=== PATIENT | female | born 1940 | race Caucasian/White ===

== ENCOUNTER → 2016-07-27 19:59 | Emergency (ER) | payer MEDICARE, BC ==
[~2016-07-27 19:59] MED LIST: Guaifenesin/Pseudo 600/60(NF) TAB (Mucinex D) PO ONE; LORazepam INJ* 2 MG/ML 1 ML VIAL IV ONE; NS 0.9% 1000 ML* 500 ML IV ONE; Pseudoephedrine TAB* 30 MG PO ONE; diPHENhydraMINE IV* 50 MG/ML 1 ml VIAL (BENADRYL) IV ONE; guaiFENesin ER TAB 600 MG PO ONE
[2016-07-28 00:32] VITALS: BP 140/53
--- NOTE | 2016-07-28 14:22 | ED ---
Melvi Rod Rebecca, scribed for Ralph Bush MD on 07/27/16 at 2024 . Allergic Reaction/Systemic - HPI Summary HPI Summary: Pt is a 75 y/o F who comes to ED p/w possible allergic reaction. After eating fish, at 1715 she suddenly began experiencing throat tightening and cough with great amounts of phlegm. Sx have been present since onset. Sx aggravated and alleviated by nothing. Denies rash, pruritis and tongue swelling. Daughter reports she has eaten fish previously without an adverse reaction. Has never had allergy testing completed. Several prior similar episodes, but less severe. - History of Current Complaint Chief Complaint: EDAllergicReaction Time Seen by Provider: 07/27/16 20:18 Hx Obtained From: Patient Onset/Duration: Sudden Onset, Started hours ago - 3 hours ago, Still Present Timing: Constant Severity Initially: Mild Severity Currently: Mild Pain Intensity: 2 Pain Scale Used: 0-10 Numeric Aggravating Factor(s): Nothing Alleviating Factor(s): Nothing Associated Signs And Symptoms: Positive: Throat Tightening, Other: - Productive cough; Denies tongue swelling and pruritis. 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 Negative: Rash All Other Systems Reviewed And Are Negative: Yes Physical Exam Triage Information Reviewed: Yes Vital Signs On Initial Exam: Initial Vitals Temp Pulse Resp BP Pulse Ox 98.8 F 106 20 173/79 96 07/27/16 20:00 07/27/16 20:00 07/27/16 20:00 07/27/16 20:00 07/27/16 20:00 Vital Signs Reviewed: Yes Appearance: Positive: Well-Appearing, No Pain Distress Skin: Positive: Warm, Skin Color Reflects Adequate Perfusion, Dry, Other - No rash Head/Face: Positive: Normal Head/Face Inspection Eyes: Positive: Normal ENT: Positive: Normal ENT inspection, Other - Posterior pharynx normal Neck: Positive: Supple, Nontender Respiratory/Lung Sounds: Positive: Clear to Auscultation, Breath Sounds Present Cardiovascular: Positive: RRR Abdomen Description: Positive: Nontender, Soft Bowel Sounds: Positive: Present Musculoskeletal: Positive: Normal Neurological: Positive: Normal Psychiatric: Positive: Normal Diagnostics - Vital Signs Vital Signs Temp Pulse Resp BP Pulse Ox 07/27/16 20:00 98.8 F 106 20 173/79 96 - Laboratory Lab Results: Lab Results 07/27/16 07/27/16 Range/Units 22:04 23:44 POC Glucose (mg/dL) 119 H 135 H (74-106) mg/dL Lab Statement: Any lab studies that have been ordered have been reviewed, and results considered in the medical decision making process. Re-Evaluation - Re-Evaluation First Eval Re-Evaluation Time: 22:55 Change: Improved Allergic Reaction Course/Dx - Course Assessment/Plan: Mr. Villalta is a 75 y/o F who p/w possible allergic reaction that began at 1715 after eating fish and is characterized as throat tightening and productive cough. Denies tongue swelling, rash and pruritis. She was administered Benadryl, Mucinex, Ativan and Sudafed in the course of the ED and improved the most with ativan. Pt will be D/C to home improved. - Diagnoses Provider Diagnoses: Choking, Anxiety Discharge - Discharge Plan Condition: Stable Disposition: HOME Patient Education Materials: General Allergic Reaction (ED) Referrals: Shalom Cisse MD [Primary Care Provider] - The documentation as recorded by the Melvi christianson Rebecca accurately reflects the service I personally performed and the decisions made by , Ralph Bush MD.
== END | disposition home or self-care (01) ==
LOC: ED 19:59
DX: T78.40XA Allergy, unspecified, initial encounter (principal); F41.9 Anxiety disorder, unspecified; R05 Cough; X58.XXXA Exposure to other specified factors, initial encounter
CPT/HCPCS: 96365; 99283; A9270-GY; J1200; J2060